=== PATIENT | female | born 1995 | race Caucasian/White ===

== ENCOUNTER → 2016-09-19 | Day surgery (SDC) | payer OTHER ==
[~2016-09-19] MED LIST: MICROGESTIN1 TA1 PO; PANTOPRAZOLE SO40 MG PO
--- NOTE | ~2016-09-19 | OR ---
Unit #: [id number] #: [id number] Patient: ABDIRAHMAN HAGEN [id number] [address] [address] [id number] O MR#: [id number] NAME: ABDIRAHMAN HAGEN ROOM: Date of Procedure: 09/19/2016 Admission Date: 09/19/2016 Surgeon: Gregg Bah M.D. : 1995 Attending Physician: Gregg Bah M.D. Primary Care Physician: David Leonard M.D. OPERATIVE REPORT PREOPERATIVE DIAGNOSIS Chronic cholecystitis. POSTOPERATIVE DIAGNOSIS Chronic cholecystitis. PROCEDURE PERFORMED Laparoscopic cholecystectomy. THERAPEUTIC STRATEGY LEAD Arnoldo Adams M.D. ANESTHESIA General endotracheal anesthesia. ESTIMATED BLOOD LOSS Minimal. IV FLUIDS 800 crystalloid. COMPLICATIONS None. INDICATIONS FOR PROCEDURE The patient is a 20-year-old, who presents with chronic cholecystitis and gallstones. DESCRIPTION OF PROCEDURE The patient was taken to the operating theater and placed in a supine position. General anesthesia was induced. The abdomen was prepped and draped. A 5-mm Optiview trocar was placed in the right upper quadrant without difficulty. The abdomen was insufflated with 15 mmHg with CO2. Under direct vision, I placed a subxiphoid 10 mm, right lateral 5 mm, umbilical 5 mm. General inspection of the abdomen revealed gallbladder with adhesions. This was retracted up over the liver. We dissected down the adhesions and identifying the fundus of the gallbladder. We dissected the neck of the gallbladder and identified the cystic duct. Its junction with the gallbladder was confirmed. It was thus skeletonized, doubly hemoclipped, and divided. The cystic artery laid immediately posterior. This was skeletonized, doubly hemoclipped, and divided. The gallbladder was removed from the gallbladder bed with Bovie electrocautery and Unit #: [id number] #: [id number] Patient: ABDIRAHMAN HAGEN delivered via the subxiphoid port. Hemostasis was adequate. I removed the ports under direct vision. I closed the fascia with 0 Vicryl and skin with 4-0 Vicryl. The patient tolerated the procedure well and sent to recovery room in good condition. Dictated by... Aidee AguilarO/annmarie TD: 09/20/2016 04:05 JOB #: [id number] OPERATIVE REPORT X Gregg Bah MD PROCEDURE OPERATIVE NOTE
== END | disposition home or self-care (01) ==
LOC: CSUR 07:53
DX: K80.10 Calculus of gallbladder with chronic cholecystitis without obstruction (principal); K21.9 Gastro-esophageal reflux disease without esophagitis; R12 Heartburn; E66.9 Obesity, unspecified; Z98.818 Other dental procedure status; Z79.899 Other long term (current) drug therapy; Z87.81 Personal history of (healed) traumatic fracture; Z87.39 Personal history of other diseases of the musculoskeletal system and connective tissue
CPT/HCPCS: 84703; 88304; J0131; J0330; J1100; J1644; J1885; J2250; J2405; J2710; J3010